=== PATIENT | male | born 1965 | race Caucasian/White ===

== ENCOUNTER 2016-08-21 05:32 | Inpatient (IN) | payer OTHER ==
[~2016-08-21] VITALS: Ht 183.5 cm; Wt 99.4 kg
[2016-08-21] VITALS (15 sets, daily range): BP systolic 99–132; BP diastolic 59–77; PULSE 50–77; RESP 11–18; O2SAT 94–100
[~2016-08-21 05:32] MED LIST: ASPI-973 PO; ATEN50TA PO; CeFAZolin Inj 2 GM in IV Premix 1 EACH IV SCH; LACT1CAP65 PO; LISI10TA PO; Lactated Ringer's 1,000 ML IV SCH; Sodium Chloride LOK Flush 10 mL Syringe IVFLUSH SCH; Vancomycin Dose per Pharmacist XX ONE
[2016-08-21] MEDS ORDERED: Lactated Ringer's 1,000 ML IV ONE (05:35)
[2016-08-21] MEDS ORDERED: Vancomycin Inj 1,000 MG in IV Premix 1 EACH IV ONE (06:00)
[2016-08-21] MEDS: CeFAZolin 2 Gm/50 mL D5W IV Premix IV ONE ×2 (07:50→08:10)
[2016-08-21] MEDS ORDERED: Ropivacaine-PF 0.5% 30 mL Inj ARTICULAR ONE (09:00)
[2016-08-21] MEDS ORDERED: Lactated Ringer's 500 ML IV PRN (09:04)
[2016-08-21] MEDS ORDERED: Lactated Ringer's 1,000 ML IV SCH (09:04)
--- NOTE | 2016-08-21 09:04 | PCM.HPANE ---
Patient Data Surgeon Admitting Provider: Attending Provider:Hussain Arguello DO Primary Care Physician:Sherrie Yoo PA-C Other Provider:Edilma Salazar Anesthesia Reason for Visit Right Knee Arthritis Ht/WT & BMI Height (Feet): 6 Height (Inches): 0.25 Weight (Kilograms): 99.4 Body Mass Index 29.00 Allergies Coded Allergies: No Known Allergies (Unverified , 08/15/16) Past Anesthesia History Anesthesia History: Denies:: Anesthesia Reactions, Malignant Hyperthermia Diabetes History Hx Diabetes?: No MRSA MRSA: No Medications Blood Thinner: Aspirin Hypertension Medication: Yes (LISINOPRIL) Home Meds Incl Beta Mary: Yes (Atenolol 50) Date Beta Mayr Taken: Aug 21, 2016 Time Beta Mary Taken: 344 Reported Medications Aspirin 81 Mg Scerng52 Mg PO DAILY Ref 0 08/15/16 Atenolol 50 Mg Rwmvyv11 Mg PO DAILY #30 TABLET Ref 0 08/15/16 Lisinopril 10 Mg Dvfwge32 Mg PO DAILY 30 Days Ref 0 08/15/16 Lactobacillus Acidophilus (Probiotic)1 Each Capsule1 Each PO DAILY 08/15/16 History History of ENT Problems?: No Hx of Heart Problems?: Yes Cardiovascular History: Positive for:: Hypertension Valvular Heart Disease (MILD , TR-MILD MR,MILD TR) Denies:: Heart Murmur (ECHO 06/2016 EF 70-75%) Other Cardiac History: PLATELETS 125 07/30/2016 (HX OF CIRRHOSIS) Hx of Respiratory Problem?: No Respiratory History: Denies:: Use of C-PAP Machine Hx Neurologic Problems?: No Hx of GI Problems?: Yes Gastrointestinal History: Positive for:: Cirrhosis (ALCOHOLIC-QUIT 2YRS AGO) Liver Disease Hx of Problems?: No Male Hx: Positive for:: Testicular Surgery (S/P VASECTOMY) Denies:: Prostate Problems Scrotal Mass Skin History: Denies:: History Skin Disorders? Pressure Ulcers Hx Musculoskeletal Problems?: Yes Musculoskeletal History: Positive for:: Degenerative Joint Musculoskeletal Trauma (S/P LT KNEE SCOPE,LT HAND MIDDLE FLEXOR TENDON RPR) Osteoarthritis (RT KNEE=CURRENT PROBLEM) Hx of Psycho/Social Problems?: No Hx Surgeries?: Yes (VASECTOMY,LT KNEE SCOPE,LT HAND MIDDLE FLEXOR TENDON RPR) Hx Any Other Health Problems?: Yes Other History: Denies:: Cancer Endocrine Disease Hospitalization Thyroid Disease History Blood Transfusions: Denies:: Blood Transfusions Hx Diabetes: No Hx Alcohol Use: No (ALCOHOLIC-QUIT 2YRS AGO)Have You Smoked inLast 12 mo: No Stop/Bang S-Snoring: Do You Snore Loudly: No T-Tired: feel tired, fatigued: No O-Obsered: Observed not breath: No P-Blood Pressure: treated: Yes B- Body Mass Index > 35 kg/m2: No A- Age over 50: Yes N- Neck Large Circumference: Yes G- Gender Male: Yes KIM Total Score: 4 Risk Assessment Category Category 1A: Patient has history of documented sleep apnea, and HAS NOT received any narcotic, sedative or anesthesia administration during this stay. Category 1B: Patient has history of documented sleep apnea, and HAS received any narcotic , sedative or anesthesia administration during this stay Category 2: Patient has SUSPECTED Obstructive Sleep Apnea, and HAS received any narcotic , sedative or anesthesia administration during this stay. Category 3: Patient has SUSPECTED Obstructive Sleep Apnea and HAS NOT received narcotic, sedative or anesthesia administration during this stay. Category 4: Outpatient in Procedural Areas with known sleep apnea or who screen positive for High Risk via the STOP/BANG questionnaire. Exam Exam Vital Signs Vital Signs Date Time Temp Pulse Resp B/P Pulse Ox O2 Delivery O2 Flow Rate FiO2 08/21/16 06:14 35.9 51 16 132/76 98 Room Air General Appearance: Alert, Oriented X3, Cooperative, No Acute Distress HEENT/AIRWAY: MP 1 Lungs: Clear to Auscultation, Normal Air Movement Heart: Exam Unremarkable, Regular Rate/Rhythm, No Murmurs/Rubs/Gallops Meds/Labs/Diagnostics Admission Meds Current Medications Vancomycin HCl/ Dextrose 1000 mg/ Premix 200 ml @ 133.333 mls/hr PREOP ONCE IV Last administered on 08/21/16 07:03; Start 08/21/16 at 06:00; Stop 08/21/16 at 07:29 Lactated Ringer's (Lr) 1,000 ml @ ud STK-MED ONCE IV Last administered on 05:35; Start 08/21/16 at 05:35; Stop 08/21/16 at 05:36; Status DC Plan Impression Patient chart reviewed, patient interviewed and anesthestic plan with risks, benefits, and alternatives discussed, and informed consent obtained. NPO Status: 08/20 AT `1930 ASA Physical Status: ASA2 Mod Systemic Disease Anesthetic Plan: Regional Block, SAB Bene/Risks/Altern/Consents: Yes HP Complete Prior to Induction: Yes Kevin Calderón MD Aug 21, 2016 07:14
[2016-08-21] MEDS ORDERED: MetoCLOpramide 5 mg/mL 2 mL Inj IVPUSH PRN (09:05)
[2016-08-21] MEDS ORDERED: HYDROmorphone 1 mg/mL Inj IVPUSH PRN ×2 (09:05→10:20)
[2016-08-21] MEDS ORDERED: Dexamethasone 4 mg/mL Inj IVPUSH PRN (09:05)
[2016-08-21] MEDS ORDERED: Ondansetron 2 mg/mL 2 mL Inj IVPUSH PRN ×2 (09:05→10:20)
[2016-08-21] MEDS ORDERED: Phenylephrine 10,000 mCg/mL Inj IVPUSH PRN (09:05)
[2016-08-21] MEDS ORDERED: fentaNYL-PF 50 mCg/mL 2 mL Inj IVPUSH PRN (09:05)
[2016-08-21] MEDS ORDERED: EPHEDrine Sulfate 50 mg/mL Inj IVPUSH PRN (09:05)
[2016-08-21] MEDS ORDERED: Atropine 0.4 mg/mL Inj IVPUSH PRN (09:05)
[2016-08-21] MEDS ORDERED: diphenhydrAMINE 25 mg Capsule PO PRN (10:20)
[2016-08-21] MEDS ORDERED: Magnesium Hydroxide 10 mL Oral Concentration PO PRN (10:20)
[2016-08-21] MEDS ORDERED: Polyethylene Glycol (PEG) 17 Gm Powder PO PRN (10:20)
--- NOTE | 2016-08-21 10:52 | DRSVH ---
PROCEDURE: X-RAY RIGHT KNEE, ONE OR TWO VIEWS ([id number]) INDICATIONS: post op TECHNIQUE: 2 view(s) of the knee acquired. COMPARISON: None. FINDINGS: Bones: Patient is status post knee joint arthroplasty. Hardware components are in expected position s. Visualized bony structures are intact. Soft tissues: Overlying postoperative changes are noted. IMPRESSION: Status post right knee arthroplasty as above. Dictated by: Mana Crane M.D. on 08/21/2016 at 10:50 Approved by: Mana Crane M.D. on 08/21/2016 at 10:50
--- NOTE | 2016-08-21 11:03 | OP ---
[address] [address] OPERATIVE REPORT PATIENT: BRENT SY : 1965 MR#: [id number] ADMIT: 08/21/2016 JOB ID: [id number] DATE OF SURGERY: 08/21/2016 PREOPERATIVE DIAGNOSIS(ES): Right knee degenerative joint disease. POSTOPERATIVE DIAGNOSIS(ES): Right knee degenerative joint disease. PROCEDURE: Right total knee arthroplasty. SURGEON: Hussain Arguello DO PROJECT INTERN: Thalia Chawla PA-C INDICATIONS: The patient is a 51-year-old male with right knee severe degenerative arthritis with failed conservative measures and wished to proceed with a right total knee arthroplasty. We discussed the risks, benefits, and possible complications of surgery. All questions were answered, and he wished to proceed. A surgical resident was required for the successful completion of the procedure. PROCEDURE IN DETAIL: The patient was brought to the operating room. He was given a preoperative antibiotic and spinal anesthetic. We also used TXA 1 g at the start of the procedure and 1 g after the tourniquet had been let down to help control bleeding. The right knee was sterilely prepped and draped. An incision was made centered over the anteromedial knee longitudinally and dissection was carefully carried through the subcutaneous tissue. Electrocautery was used for hemostasis. A split was then made in the quad tendon leaving a cuff of tissue for repair. This was taken along the medial retinaculum and down onto the proximal medial tibial face. The patella was everted and the portion of the anterior horn, medial and lateral menisci were removed. A portion of the fat pad was removed. The patella was everted and the femur was instrumented with the intramedullary reamer and intramedullary guide. A 5-degree distal valgus cut angle was chosen and 10 mm was planned for resection. The block was pinned into position. The distal femoral cut was performed. Next, the tibia was addressed and an extramedullary tibial guide was placed parallel to the long axis of the tibia. This was pinned into position and parallel to the long axis of the tibia, and the cut was performed and completed with an osteotome. The remainder of the menisci were removed and the femur was then sized, felt to be a size 6. I added 5 degrees of external rotation to the valgus nature of his deformity, and the block was pinned into position. The distal femoral cuts were performed. Next, the trial was performed with the 6 femur and 6 tibia. It was quite tight medially, interestingly, and so some additional medial release was performed with a Brown elevator in order to equal out the flexion-extension gaps medially and laterally. Next, the box cut was performed and the tibia was drilled and punched. The patella was resurfaced with a free hand technique, cut from initial thickness of 23 to a thickness of 15, and a 35 mm patellar button was chosen, drilled for and trialed, and had excellent tracking. The femoral lugs were drilled and the bony surfaces were then washed and dried. The components were cemented into position beginning with the [employer] rotating platform six tibia followed by the 6 femur and the 35 mm patellar button. After the excess cement was removed and the cement was allowed to polymerize, a size 6 thickness rotating platform poly was inserted and the wound was again irrigated and then closed with #1 Surgilon to close the medial retinaculum and quad tendon. The subcu was then closed with running 2-0 V-Loc and the skin was closed with a subcuticular 3-0 V-Loc. Naropin was added in the posterior knee as an adjunct local anesthetic in addition to his femoral nerve block. The patient tolerated the procedure well. Blood loss was 100 cc. POSTOPERATIVE PROTOCOL: Have the patient weightbear to tolerance. Use a walker for ambulation. Ice and elevate, and follow up in the clinic for recheck in two weeks or sooner if needed. Given a prescription for oxycodone, #90, for pain.
--- NOTE | 2016-08-21 12:34 | PCM.ANEP1 ---
Post Anesthesia Phase 1 PACU Phase 1 Assessment Vital Signs Vital Signs Date Time Temp Pulse Resp B/P Pulse Ox O2 Delivery O2 Flow Rate FiO2 08/21/16 11:47 36 54 16 112/77 99 Room Air 08/21/16 11:23 50 11 110/69 97 Room Air 08/21/16 11:12 36.4 52 13 102/69 97 Room Air 08/21/16 11:06 54 16 105/61 97 Room Air 08/21/16 10:52 52 14 104/65 97 Room Air 08/21/16 10:51 15 98 08/21/16 10:45 51 13 107/67 97 Room Air 08/21/16 10:25 57 16 99/71 94 Room Air 08/21/16 10:19 14 95 08/21/16 10:15 58 12 115/73 96 Room Air 08/21/16 10:13 36.8 57 11 115/66 96 Room Air 08/21/16 06:14 35.9 51 16 132/76 98 Room Air Anesthetic Administered: Regional Block, SAB Level of Alertness: Awake, talking ROBERTS's with Equal Strength: No Pain: No Nausea or Vomiting: No Oxygen Delivery: Room Air Lungs: Clear to Auscultation, Normal Air Movement Dermatome Level: T12 (Symphysis Pubis) Kevin Calderón MD Aug 21, 2016 12:34
--- NOTE | 2016-08-21 12:34 | PCM.ANEP2 ---
Post Anesthesia Evaluation ASA/CMS Post Anesthesia VS in Patient's Normal Range?: Yes Resp Stable; Airway Patent?: Yes CV Function & Hydration Stable: Yes Mental Status Recovered?: Yes Pain control Satisfactory?: Yes N/V Control Satisfactory?: Yes Kevin Calderón MD Aug 21, 2016 12:34
[2016-08-21] MEDS ORDERED: Propofol 10,000 mCg/mL 20 mL Inj ONE (14:32)
[2016-08-21] MEDS ORDERED: fentaNYL-PF 50 mCg/mL 2 mL Inj ONE (14:32)
[2016-08-21] MEDS: hydrOXYzine Pamoate 25 mg Capsule PO PRN ×2 (15:36→20:48)
[2016-08-21] MEDS: 0.9% Sodium Chloride 1,000 ML IV SCH ×2 (15:36→20:20)
[2016-08-21] MEDS: CeFAZolin Inj 2 GM in IV Premix 1 EACH IV SCH (17:00)
[2016-08-21] MEDS: Senna-Docusate 8.6-50 mg Tablet PO SCH (20:46)
[2016-08-22] MEDS: CeFAZolin Inj 2 GM in IV Premix 1 EACH IV SCH (00:03)
[2016-08-22 00:05] VITALS: BP 124/60; PULSE 87; RESP 16; O2SAT 96
--- NOTE | 2016-08-22 02:04 | NUR ---
Pain Patient complained of 6/10 right knee pain at beginning of shift. 10mg of oxycodone PO, and PO Vistaril are being given to manage pain. Upon reassessment patient was sleeping and appears comfortable. Patient has had no further complaints of pain at this time. Will continue to monitor, and continue Q1 hour checks.
[2016-08-22] MEDS: hydrOXYzine Pamoate 25 mg Capsule PO PRN ×5 (02:35→20:03)
[2016-08-22 04:34] VITALS: BP 131/70; PULSE 70; RESP 19; O2SAT 97
[2016-08-22 05:34] LABS: BASOPHILS % (AUTO) 0.2 % (0-3); EOSINOPHILS % (AUTO) 0.9 % (0-5); MONOCYTES % (AUTO) 14.2 % (4-12); Mean Corpuscular Hemoglobin 31.9 pg (27.0-35.0); Mean Corpuscular Volume 89.4 fL (81-100)
[2016-08-22] MEDS: 0.9% Sodium Chloride 1,000 ML IV SCH ×2 (06:20→16:20)
[2016-08-22 06:26] LABS: Platelet Count 91 bil/L (150-400)
--- NOTE | 2016-08-22 06:26 | PCM.PNORTH ---
Subjective Date of Service: Aug 22, 2016 Visit Information: Reason for Visit Right Knee Arthritis Surgery/Surgery Date Post-Op Day # Date of Admission: Aug 21, 2016 at 14:31 Hospital Day # Subjective Found patient awake and alert this morning a well-positioned in bed. No complaints of pain at this time. Patient's is staying overnight at bedside. Patient and both work at 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 Explained physical therapy plan to patient and encouraged him to participate fully in therapy. Discussed discharge on postop day 3 and patient and are aware of this issue. Answered a number of questions regarding the process and patient and both state they feel well informed and well cared for at this time. Prescription for formal physical therapy has been placed in the patient's chart and this is discussed at some length this morning and I have advised them to initiate therapy as soon as possible to begin after discharge. Postop General: No Complaints, No Shortness of Breath, No Chest Pain Pain Management: PO Objective Exam Objective Orientation: Alert and oriented 3 and pleasant. Dressing: Interoperative dressing is clean dry and intact. Wound: Not observed at this time. Compartments: Find calf are soft and nontender. Mobility/sensation: Mobility and sensation intact at the right lower extremity distally. Matt: Absent Drain: Absent Gait: No gait with therapy as of this time. Vital Signs and I/O Vital Sign - Last Date Time Temp Pulse Resp B/P Pulse Ox O2 Delivery O2 Flow Rate FiO2 08/22/16 04:34 36.8 70 19 131/70 97 Room Air Intake and Output 08/21/16 08/21/16 08/22/16 Cumulative From/Thru 15:00 23:00 07:00 08/15/16 09:52 - 08/22/16 05:49 Intake Total 670 ml 1400 ml 1325 ml 3695 ml Output Total 100 ml 500 ml 530 ml 1130 ml Balance 570 ml 900 ml 795 ml 2565 ml Intake Oral 1400 ml 400 ml 1800 ml IV Total 670 ml 925 ml 1895 ml Output Urine Total 500 ml 530 ml 1030 ml Estimated Blood Loss 100 ml 100 ml # Bowel Movements 0 0 0 Lab & Micro Results Laboratory Tests Test 08/22/16 05:00 Sodium Level 137mEq/L (134-144) Potassium Level 4.5mEq/L (3.5-5.2) Chloride Level 99mEq/L (97-108) Carbon Dioxide Level 25mmol/L (18-29) Blood Urea Nitrogen 12mg/dL (6-24) Creatinine 0.78mg/dL (0.76-1.27) Estimat Glomerular Filtration Rate 111mL/min (>59) Glucose Level 138mg/dL (60-99) Calcium Level 8.3mg/dL (8.5-10.1) General Appearance: Alert, Oriented X3, Cooperative, No Acute Distress Extremities: No Compartment Syndrom Noted, Thigh & Calf Soft/Nontender Postop Sensory Motor: Distal Motor Intact, Movement in Toes, Distal Sensation Intact Activity: Activity per PT, Ambulate with PT (weightbearing as tolerated on the right lower extremity using front-wheeled walker.) Catheters: None Assessment & Plan Impression Patient is a 51-year-old physically fit appearing male with no significant comorbid conditions who has just undergone a right total knee arthroplasty performed on 08/21/[address] Arguello. Patient is well-informed and well cared for by and hospital staff. He has no complaints at this time and I anticipate a good performance with physical therapy and uneventful discharge on postop day 3. Problems: Plan Postop day # 1 from right total knee arthroplasty performed on 08/21/[address] Hussain Arguello. Weight bearing status: Weightbearing as tolerated on the right lower extremity Mobility aid: Front-wheeled walker Immobilization: None Precautions: None Physical therapy: Continue formal physical therapy for mobility, gait safety. Outpatient formal therapy prescription is placed in chart. Pain control: Oxycodone and Vistaril DVT prophylaxis: ASA 325 EC by mouth twice a day 6 weeks postop for DVT prophylaxis. Wound care: Keep wound clean dry and covered until seen in office in 2 weeks. Infectious DZ: None Matt: None Dressing: Interoperative dressing is clean dry and intact and will be changed to postoperative smaller dressing home postop day 2. Drain: None Nursin-week follow-up: Follow-up in 2 weeks at [facility] orthopedic clinic on prearranged appointment with mid-level provider for wound check and suture removal. 6-week follow-up: Follow-up in 6 weeks at a [facility] would recommend orthopedic clinic with Dr. Hussain Arguello with right 2 view knee x-rays on arrival . Discharge plan: Anticipate discharge to home on postoperative day #3 with as caregiver. VTE Prophylaxis: SCDs (SCD that left lower extremity), Other ( ASA 325 mg EC by mouth twice a day 6 weeks postop for DVT prophylaxis) Raoul Parra PA-C Aug 22, 2016 06:26
[2016-08-22 09:24] VITALS: BP 170/81; PULSE 76; RESP 19; O2SAT 96
[2016-08-22] MEDS: Lactobacillus Rhamnosus 10 Bil Unit Capsule PO SCH (09:28)
[2016-08-22] MEDS: Senna-Docusate 8.6-50 mg Tablet PO SCH ×2 (09:28→19:30)
[2016-08-22 14:36] VITALS: BP 150/83; PULSE 68; RESP 18; O2SAT 96
--- NOTE | 2016-08-22 14:40 | NUR ---
Social Work Screening/Readiness for Discharge D: EMR reviewed. Pt is a 51Y old male admitted for Right Knee Arthritis. Insurance is [facility]. PCP is Sherrie Yoo PA-C. JAXON met with Pt and at bedside. SW role explained. Pt lives with his in [place] where he remains independent. Pt has obtained a walker for use post surgery on is scheduled for Outpt PT on Saturday, August 27, 2016 at [facility] PT. No discharge needs identified. JAXON anticipates Pt to discharge on POD #3 via POV. If needs arise, JAXON to address. A: Pt who is independent at baseline P: Pt has obtained a walker for use post surgery on is scheduled for Outpt PT on Saturday, August 27, 2016 at [facility] PT. No discharge needs identified. JAXON anticipates Pt to discharge on POD #3 via POV. If needs arise, JAXON to address. HANNAH Mae
--- NOTE | 2016-08-22 16:34 | NUR ---
Pain Patient medicated with oxycodone and Vistaril for pain which seems to be effective. Pt up with physical therapy did well, eating, voiding and drinking plenty of fluids. Patient with full sensation to extremity, drsg dry and intact. Pt with very warm feet.
[2016-08-22 21:09] VITALS: BP 155/78; PULSE 69; RESP 20; O2SAT 95
[2016-08-23 00:32] VITALS: BP 146/74; PULSE 68; RESP 20; O2SAT 94
[2016-08-23] MEDS: hydrOXYzine Pamoate 25 mg Capsule PO PRN ×3 (00:34→11:41)
[2016-08-23] MEDS: 0.9% Sodium Chloride 1,000 ML IV SCH (01:49)
--- NOTE | 2016-08-23 05:11 | NUR ---
Pain Patient received 10mg Oxycodone PO and Vistaril 25mg PO throughout this shift per MD orders for pain management. Results effective, patient states this combination works well for him and keeps him comfortable.
[2016-08-23 05:17] VITALS: BP 138/84; PULSE 65; RESP 20; O2SAT 97
[2016-08-23 05:44] LABS: BASOPHILS % (AUTO) 0.4 % (0-3); EOSINOPHILS % (AUTO) 1.9 % (0-5); MONOCYTES % (AUTO) 17.3 % (4-12); Mean Corpuscular Hemoglobin 31.9 pg (27.0-35.0); Mean Corpuscular Volume 89.8 fL (81-100); NEUTROPHILS % (AUTO) 61.5 % (40-74); Platelet Count 97 bil/L (150-400)
--- NOTE | 2016-08-23 09:16 | NUR ---
Evaluation completed. Please go to "Notes" then click on "Assessments and Notes" (bottom left corner of screen). Then select appropriate discipline tab on top of screen.
[2016-08-23 09:36] VITALS: BP 145/74; PULSE 75; RESP 18; O2SAT 94
--- NOTE | 2016-08-23 09:39 | PCM.PNORTH ---
Subjective Date of Service: Aug 23, 2016 Visit Information: Reason for Visit Right Knee Arthritis Surgery/Surgery Date Post-Op Day # Date of Admission: Aug 21, 2016 at 14:31 Hospital Day # Subjective Found patient alert and oriented this morning and sitting up in bed. No complaints of pain at this time. Discussed his performance with physical therapy yesterday and discharge plans. Patient anticipates possibly discharging today on 08/23/2016 after at least 1 more therapy session. Patient' s home is ready and he does have his DME equipment in place. Patient also has therapy arranged to begin on 08/27/2016. Patient has agreed to ask his nurse to contact me and I can perform discharged today if this is appropriate after therapy. Postop General: No Complaints, No Shortness of Breath, No Chest Pain, Good Appetite Pain Management: PO Objective Exam Objective Orientation: Alert and oriented 3 and pleasant. Dressing: Interoperative dressing clean dry and intact. Dressing is changed to bere type fishnet dressing with ABDs this morning. Wound: Surgical wound is in good condition with no drainage and Steri-Strips in place. Compartments: Thigh and calf are soft and nontender. Distal pedal pulses intact right lower extremity. Mobility/sensation: Mobility and sensation are intact at right lower extremity distally Matt: Absent Drain: Absent Gait: Gait time 70 feet yesterday with physical therapy with multiple sessions out of bed in room. Current physical therapy recommendation is discharge to home with outpatient PT. Vital Signs and I/O Vital Sign - Last Date Time Temp Pulse Resp B/P Pulse Ox O2 Delivery O2 Flow Rate FiO2 08/23/16 05:17 36.7 65 20 138/84 97 Room Air Intake and Output 08/22/16 08/22/16 08/23/16 Cumulative From/Thru 15:00 23:00 07:00 08/15/16 09:52 - 08/23/16 07:00 Intake Total 1193 ml 4888 ml Output Total 900 ml 2030 ml Balance 293 ml 2858 ml Intake Oral 350 ml 2150 ml IV Total 1895 ml Tube Feeding 478 ml 478 ml Tube Irrigant 365 ml 365 ml Output Urine Total 900 ml 1930 ml Estimated Blood Loss 100 ml # Bowel Movements 0 Lab & Micro Results Laboratory Tests Test 08/23/16 05:08 White Blood Count 7.9th/mm3 (3.8-10.1) Red Blood Count 4.32mil/mm3 (4.40-5.80) Hemoglobin 13.8g/dL (13.8-17.2) Hematocrit 38.8% (41.0-50.0) Mean Corpuscular Volume 89.8fL (81-100) Mean Corpuscular Hemoglobin 31.9pg (27.0-35.0) Mean Corpuscular Hemoglobin Concent 35.6% (32.0-37.0) Red Cell Distribution Width 13.3% (12.3-15.4) Platelet Count 97bil/L (150-400) Neutrophils (%) (Auto) 61.5% (40-74) Lymphocytes (%) (Auto) 18.6% (14-46) Monocytes (%) (Auto) 17.3% (4-12) Eosinophils (%) (Auto) 1.9% (0-5) Basophils (%) (Auto) 0.4% (0-3) Sodium Level 136mEq/L (134-144) Potassium Level 4.1mEq/L (3.5-5.2) Chloride Level 97mEq/L (97-108) Carbon Dioxide Level 28mmol/L (18-29) Blood Urea Nitrogen 9mg/dL (6-24) Creatinine 0.60mg/dL (0.76-1.27) Estimat Glomerular Filtration Rate 150mL/min (>59) Glucose Level 127mg/dL (60-99) Calcium Level 8.4mg/dL (8.5-10.1) Result Diagram: 08/23/16 0508 08/23/16 0508 General Appearance: Alert, Oriented X3, Cooperative, No Acute Distress Extremities: No Compartment Syndrom Noted, Thigh & Calf Soft/Nontender Postop Sensory Motor: Distal Motor Intact, Movement in Toes, Distal Sensation Intact Activity: Activity per PT, Ambulate with PT (weightbearing as tolerated on the right lower extremity using front-wheeled walker.) Catheters: None Assessment & Plan Impression Patient is having no significant pain issues at this time and has participated very well with physical therapy regarding recommendation for discharge to home with outpatient PT. Patient anticipates possible discharge today on postop day 2 after at least one more physical therapy session. Problems: Plan Plan Postop day # 2 from right total knee arthroplasty performed on 08/21/[address] Hussain Arguello. Weight bearing status: Weightbearing as tolerated on the right lower extremity. Mobility aid: Front-wheeled walker . Immobilization: None Precautions: None Physical therapy: Continue formal physical therapy for mobility, gait safety. Outpatient formal therapy prescription is placed in chart. Social service note indicates outpatient therapy to start on 08/27/2016. Pain control: Oxycodone 10 mg every 4h and Vistaril 25 mg every 4h. DVT prophylaxis: ASA 325 EC by mouth twice a day 6 weeks postop for DVT prophylaxis. Wound care: Keep wound clean dry and covered until seen in office in 2 weeks. Infectious DZ: None Matt: None Dressing: Interoperative dressing is clean dry and intact and is changed today to [place] style ABD and fishnet dressing. Drain: None Nursing: Please contact PA to initiate discharge paperwork if patient desires discharge today. 2-week follow-up: Follow-up in 2 weeks at [facility] orthopedic clinic on prearranged appointment with mid-level provider for wound check and suture removal. 6-week follow-up: Follow-up in 6 weeks at [facility] orthopedic clinic with Dr. Hussain Arguello with right 2 view knee x-rays on arrival . Discharge plan: discharge to home today with as child care team lead on POD #2, 1-5- 17. VTE Prophylaxis: SCDs (SCD that left lower extremity), Other ( ASA 325 mg EC by mouth twice a day 6 weeks postop for DVT prophylaxis) Raoul Parra PA-C Aug 23, 2016 07:41
--- NOTE | 2016-08-23 09:43 | PCM.DIORTH ---
Ortho Discharge Instruction Date of Service: Aug 23, 2016 Dates of Hospitalization Date of Hospital Admission Aug 21, 2016 at 14:31 Providers Admitting Physician: Hussain Arguello DO Primary Care Physician: Sherrie Yoo PA-C Attending Physician: Hussain Arguello DO Diet Discharge Diet: No restrictions Activity Discharge Activity-General: Try not to overdue, Be up and about, Balance rest and activity, Elevate & ice extremity, Ice incision 3-5 time/day for 20min, Activity as pain allows, Activity as energy allows, No driving while taking narcotic Right Lower Extremity: Weight Bearing as tolerated Discharge Assist Device: Front Wheeled Walker Dressing and Incisional Care Discharge Dressing Care: Keep dressing clean, dry & intact, Change soiled dressing Discharge Hygiene: May shower (patient may shower but wound should be kept clean dry and covered until seen in office in 2 weeks.), DO NOT soak incision under water, NO bathtub, hot tub or whirlpool Additional Instructions Discharge Instructions Postop day # 2 from right total knee arthroplasty performed on 08/21/[address] Hussain Arguello. Weight bearing status: Weightbearing as tolerated on the right lower extremity. Mobility aid: Front-wheeled walker . Immobilization: None Precautions: None Physical therapy: Continue formal physical therapy for mobility, gait safety. Outpatient formal therapy prescription is placed in chart. Social service note indicates outpatient therapy to start on 08/27/2016. Pain control: Oxycodone 10 mg every 4h and Vistaril 25 mg every 4h. DVT prophylaxis: ASA 325 EC by mouth twice a day 6 weeks postop for DVT prophylaxis. Wound care: Keep wound clean dry and covered until seen in office in 2 weeks. Infectious DZ: None Matt: None Dressing: Interoperative dressing is clean dry and intact and is changed today to Picco style ABD and fishnet dressing. Drain: None Nursing: Please contact PA to initiate discharge paperwork if patient desires discharge today. 2-week follow-up: Follow-up in 2 weeks at [facility] orthopedic clinic on prearranged appointment with mid-level provider for wound check and suture removal. 6-week follow-up: Follow-up in 6 weeks at [facility] orthopedic clinic with Dr. Hussain Arguello with right 2 view knee x-rays on arrival . Discharge plan: discharge to home today with as director of managed care on POD #2, 1-5- 17. Follow Up Plan Follow Up Plan Patient will be seen at 2 weeks, 6 weeks and 12 weeks postoperatively. Patient will be seen when necessary in the interim. Follow-up Provider (F9): Hussain Arguello DO Follow-up appointment: Weeks (follow-up in 2 weeks at [facility] orthopedic clinic on prearranged appointment with mid-[facility] provider for wound check and suture removal.) Call your provider for: Fever, Chills, Shortness of breath, Vomitting, Drainage at incision Raoul Parra PA-C Aug 23, 2016 09:43
[2016-08-23] MEDS: Lactobacillus Rhamnosus 10 Bil Unit Capsule PO SCH (09:46)
[2016-08-23] MEDS ORDERED: DOCU-41 PO (09:46)
[2016-08-23] MEDS: Senna-Docusate 8.6-50 mg Tablet PO SCH (09:46)
[2016-08-23] MEDS ORDERED: OXYC5TAB72 PO (09:46)
[2016-08-23] MEDS ORDERED: HYDR-3797 PO (09:46)
[2016-08-23] MEDS ORDERED: Aspirin-Expunged Drug, Do Not Renew! PO (09:46)
--- NOTE | 2016-08-23 09:53 | PCM.DC.ORT ---
Discharge Summary Date of Service: Aug 23, 2016 Date of Hospital Admission: Aug 21, 2016 at 14:31 Date of Surgery: Aug 21, 2016 Date of Discharge: Aug 23, 2016 Reason for Hospitalization: Severe right knee osteoarthritis Procedures Performed: Right total knee arthroplasty Hospital Course: Patient was admitted through the preoperative care unit on 08/21/2016 and upon process and was taken to the operating room where his procedure was performed without incident. Upon awakening patient was taken to the postanesthesia care unit and upon recovery from anesthesia was transferred to the orthopedic care unit where he performed well with physical therapy and received a recommendation for discharge to home. Patient is discharged home with [facility] has caregiver on 08/23/2016. Problems: (1) Arthritis of knee Status: Acute ICD Code: M19.90 Disposition: Discharge to home with and his caregiver on 08/23/2016 Orthopedic Follow up Plan: In Two Weeks in my clinic (follow-up in 2 weeks at [facility] orthopedic clinic on prearranged appointment with mid-level provider for wound check and suture removal) Discharge Instructions: Postop day # 2 from right total knee arthroplasty performed on 08/21/[address] Hussain Arguello. Weight bearing status: Weightbearing as tolerated on the right lower extremity. Mobility aid: Front-wheeled walker . Immobilization: None Precautions: None Physical therapy: Continue formal physical therapy for mobility, gait safety. Outpatient formal therapy prescription is placed in chart. Social service note indicates outpatient therapy to start on 08/27/2016. Pain control: Oxycodone 10 mg every 4h and Vistaril 25 mg every 4h. DVT prophylaxis: ASA 325 EC by mouth twice a day 6 weeks postop for DVT prophylaxis. Wound care: Keep wound clean dry and covered until seen in office in 2 weeks. Infectious DZ: None Matt: None Dressing: Interoperative dressing is clean dry and intact and is changed today to Picco style ABD and fishnet dressing. Drain: None Nursing: Please contact PA to initiate discharge paperwork if patient desires discharge today. 2-week follow-up: Follow-up in 2 weeks at [facility] orthopedic clinic on prearranged appointment with mid-level provider for wound check and suture removal. 6-week follow-up: Follow-up in 6 weeks at [facility] orthopedic clinic with Dr. Hussain Arguello with right 2 view knee x-rays on arrival . Discharge plan: discharge to home today with as rn long term care on POD #2, 1-5- 17. Management Plan: Patient will be seen at 2 weeks, 6 weeks and 12 weeks postoperatively. Patient will be seen when necessary in the interim. ([Aspirin-Expunged Drug, Do Not Renew!]) 325 MG TABLET 325 MG PO BID Atenolol (Atenolol) 50 Mg Tablet 50 MG PO DAILY Docusate Sodium (Colace) 100 Mg Capsule 100 MG PO BID Hydroxyzine Pamoate (HydrOXYzine Pamoate) 25 Mg Capsule 25 MG PO Q4H PRN PRN For Spasm and/or Restlessness Lactobacillus Acidophilus (Probiotic) 1 Each Capsule 1 EACH PO DAILY Lisinopril (Lisinopril) 10 Mg Tablet 10 MG PO DAILY oxyCODONE (oxyCODONE) 5 Mg Tablet 5-10 MG PO Q4-6H PRN PRN For Severe Pain Raoul Parra PA-C Aug 23, 2016 09:53
--- NOTE | 2016-08-23 19:58 | NUR ---
Discharge Patient discharged home this afternoon with spouse. Pt given verbal and written home care instructions and agreed to understanding them . Pt given hardcopy of scrips . Pt already has follow up appointments. Thigh high supa hose placed prior to dc.
== END 2016-08-23 14:25 | disposition home or self-care (01) | DRG 470 ==
LOC: SAS 05:32 → OSC 14:31
PROVIDERS: ADMIT Orthopaedic Surgery; ATTEND Orthopaedic Surgery
PROC: 0SRC0J9 Replacement of Right Knee Joint with Synthetic Substitute, Cemented, Open Approach (ICD-10-PCS; principal; 2016-08-21 07:30)
DX: M17.11 Unilateral primary osteoarthritis, right knee (principal); I10 Essential (primary) hypertension